=== PATIENT | female | born 1990 | race Caucasian/White ===

== ENCOUNTER 2018-09-05 06:29 | Emergency (ER) | payer SELFPAY ==
[2018-09-05] MEDS ORDERED: Ketorolac INJ* 30 MG/ML 1 ML VIAL IV PUSH ONE (07:15)
--- NOTE | 2018-09-05 07:16 | ED ---
GI/ HPI - HPI Summary HPI Summary: This pt is a 28 y/o female presenting to [facility] c/o right flank pain today. Pt reports prior to onset of her flank pain she had a knot on her left side of neck and felt like she was about to start a cold. Today she began to have right flank pain, nausea, and vomiting. Denies fever, chills, dysuria, hematuria, rash , chest pain, SOB. PMHx includes kidney stones on the right, cholecystectomy, endometriosis, ovarian cyst. Denies hx of appendectomy. - History of Current Complaint Chief Complaint: EDFlankPain Time Seen by Provider: 09/05/18 07:09 Stated Complaint: VOMITING Hx Obtained From: Patient Onset/Duration: Started Hours Ago, Still Present Timing: Lasting Hours Current Severity: Moderate Pain Intensity: 7 Location of Pain: Flank - right Associated Signs and Symptoms: Positive: Nausea, Vomiting, Flank Pain - right. Negative: Fever, Hematuria, Dysuria, Chills, Cough, Chest Pain Aggravating Factor(s): Nothing Alleviating Factor(s): Nothing - Allergy/Home Medications Allergies/Adverse Reactions: Allergies Allergy/AdvReac Type Severity Reaction Status Date / Time morphine Allergy Rash Verified 09/05/18 06:33 Home Medications: Home Medications hydrOXYzine HCL TAB* 75 mg PO DAILY 09/05/18 [History Confirmed 09/05/18] PMH/Surg Hx/FS Hx/Imm Hx Endocrine/Hematology History: Denies: Hx Diabetes Cardiovascular History: Denies: Hx Hypertension History: Reports: Hx Kidney Stones, Other Problems/Disorders - endometriosis - Surgical History Surgery Procedure, Year, and Place: Cholecystectomy Infectious Disease History: No Infectious Disease History: Denies: Traveled Outside the [place] in Last 30 Days - Family History Known Family History: Negative: Cardiac Disease, Hypertension - Social History Alcohol Use: Occasionally Substance Use Type: Reports: None Smoking Status (MU): Never Smoked Tobacco Review of Systems Negative: Fever, Chills Negative: Chest Pain Negative: Shortness Of Breath Positive: Vomiting, Nausea Positive: flank pain - right. Negative: dysuria, hematuria Negative: Rash All Other Systems Reviewed And Are Negative: Yes Physical Exam - Summary Physical Exam Summary: Appearance: Well appearing, no pain distress Skin: warm, dry, reflects adequate perfusion Head/face: normal Eyes: EOMI, LETA ENT: normal Neck: supple, nontender Respiratory: CTA, breath sounds present Cardiovascular: RRR, pulses symmetrical Abdomen: Mild tenderness on the right flank Musculoskeletal: normal, strength/ROM intact Neuro: normal, sensory motor intact, A&Ox3 Triage Information Reviewed: Yes Vital Signs On Initial Exam: Initial Vitals Temp Pulse Resp BP Pulse Ox 98.9 F 103 20 117/77 98 09/05/18 06:32 09/05/18 06:32 09/05/18 06:32 09/05/18 06:32 09/05/18 06:32 Diagnostics - Vital Signs Vital Signs Temp Pulse Resp BP Pulse Ox 09/05/18 06:32 98.9 F 103 20 117/77 98 - Laboratory Result Diagrams: 09/05/18 07:30 09/05/18 07:30 Lab Statement: Any lab studies that have been ordered have been reviewed, and results considered in the medical decision making process. - CT Abdomen/Pelvis CT CT Interpretation Completed By: Radiologist Summary of CT Findings: IMPRESSION: No hydronephrosis or nephrolithiasis. No acute noncontrast CT pathology of the visualized abdomen and pelvis. Dr. Helm has reviewed this report. Re-Evaluation - Re-Evaluation First Eval Re-Evaluation Time: 10:23 Comment: I reviewed the lab and CT results with the pt. She will be discharged home. GIGU Course/Dx - Course Assessment/Plan: Pt is a 28 y/o female, with hx of kidney stones on the right, who presents with right flank pain today. Pt reports prior to onset of her flank pain she had a knot on her left side of neck and felt like she was about to start a cold. Today she began to have right flank pain, nausea, and vomiting. Denies fever, chills, dysuria, hematuria, rash, chest pain, SOB. Blood work, urinalysis, and abdomen/pelvis CT obtained. Abdomen/Pelvis CT shows no hydronephrosis or nephrolithiasis. No acute noncontrast CT pathology of the visualized abdomen and pelvis. Urinalysis is consistent with UTI. In the ED course pt was given IV fluids, Toradol, Bactrim. Pt will be discharged home with a prescription for Bactrim and follow up from her PCP. She was instructed to return to the ED for any worsening or new symptoms. - Diagnoses Differential Diagnoses - Female: Renal Calculi, Urinary Tract Infection, Ureteral Calculi Provider Diagnoses: UTI (urinary tract infection) Discharge - Sign-Out/Discharge Documenting (check all that apply): Patient Departure - Discharge home - Discharge Plan Condition: Stable Disposition: HOME Prescriptions: Sulfamethox/Trimethoprim DS* [Bactrim DS 800/160 TAB*] 1 tab PO BID #10 tab Patient Education Materials: Urinary Tract Infection in Women (ED) Forms: *Work Release Referrals: [facility] [Outside] Additional Instructions: Please follow up with your primary care provider in 3 days. If you don't have one, please follow up with [facility]. RETURN TO THE ED FOR ANY WORSENING OR NEW SYMPTOMS. - Billing Disposition and Condition Condition: STABLE Disposition: Home - Attestation Statements Document Initiated by Ron: Yes Documenting Scribe: Estefany Villegas Provider For Whom Ron is Documenting (Include Credential): Jaylen Helm MD Scribe Attestation: Estefany Zarate scribed for Jaylen Helm MD on 09/05/18 at 1148. Scribe Documentation Reviewed: Yes Provider Attestation: The documentation as recorded by the Estefany bhandari accurately reflects the service I personally performed and the decisions made by , Jaylen Helm MD Status of Scribe Document: Viewed
[2018-09-05 07:38] LABS: ABS Basophils 0 10^3/ul (0-0.2); ABS Eosinophils 0.1 10^3/ul (0-0.6); ABS Monocytes 0.4 10^3/ul (0-0.8); ABS Neutrophils 5.5 10^3/ul (1.5-7.7); ABS Nucleated RBC 0 10^3/ul; Eosinophil % 1.7 %; Hematocrit 41 % (35-47); Hemoglobin 13.9 g/dl (12.0-16.0); Mean Corpuscular HGB Conc 34 g/dl (31-36); Mean Corpuscular Hemoglobin 32 pg (27-31); Mean Corpuscular Volume 94 fL (80-97); Mean Platelet Volume 9.7 fL (7.4-10.4); Nucleated Red Blood Cells % 0.1; Platelet Count 167 10^3/ul (150-450); Red Blood Count 4.35 10^6/ul (4.00-5.40); Red Cell Distribution Width 12 % (10.5-15); White Blood Count 7.1 10^3/ul (3.5-10.8)
[2018-09-05 07:57] LABS: ALT 11 U/L (7-52); AST 12 U/L (13-39); Albumin 4.3 g/dL (3.2-5.2); Albumin/Globulin Ratio 1.7 (1-3); Alkaline Phosphatase 41 U/L (34-104); Anion Gap 7 mmol/L (2-11); Blood Urea Nitrogen 8 mg/dL (6-24); CO2 Carbon Dioxide 21 mmol/L (22-32); Calcium 9.3 mg/dL (8.6-10.3); Chloride 110 mmol/L (101-111); EGFR Non-African American 127.2 (>60); Globulin 2.6 g/dL (2-4); Glucose 99 mg/dL (70-100); Potassium 3.7 mmol/L (3.5-5.0); Sodium 138 mmol/L (135-145); Total Protein 6.9 g/dL (6.4-8.9)
[2018-09-05] MEDS: NS 0.9% 1000 ML* 2,000 ML IV ONE ×2 (08:02→08:03)
[2018-09-05 08:03] LABS: HCG Pregnancy < 0.60 mIU/mL
[2018-09-05 08:26] LABS: Urine Appearance Cloudy; Urine Bacteria Absent (Absent); Urine Bilirubin Negative (Negative); Urine Blood 2+ (Negative); Urine Color Yellow; Urine Glucose Negative (Negative); Urine Ketones Negative (Negative); Urine Nitrite Positive (Negative); Urine Protein 1+(30 mg/dL) (Negative); Urine Red Blood Cell Trace(0-2/hpf) (Absent); Urine Specific Gravity 1.018 (1.010-1.030); Urine Urobilinogen Negative (Negative); Urine White Blood Cell 3+(>20/hpf) (Absent)
[2018-09-05] MEDS ORDERED: Sulfamethox/Trimethoprim DS 800/160* TAB PO ONE (10:21)
[2018-09-05 10:43] VITALS: BP 116/67
--- NOTE | 2018-09-07 16:08 | PN ---
Progress Note - Progress Note Date of Service: 09/05/18 Note: Pt. started on Bactrim 09/05 for UTI. Final urine culture today is growing e. coli susceptible to bactrim. No change in treatment needed at this time.
== END 2018-09-05 10:50 | disposition home or self-care (01) ==
LOC: ED 06:29
DX: N39.0 Urinary tract infection, site not specified (principal); B96.20 Unspecified Escherichia coli [E. coli] as the cause of diseases classified elsewhere; Z87.442 Personal history of urinary calculi
CPT/HCPCS: 36415; 74176; 80053; 81003; 81015; 83690; 84702; 85025; 87077; 87086; 87186; 96360; 96361; 99283; A9270-GY; J1885

== ENCOUNTER 2019-02-19 18:51 | Emergency (ER) | payer SELFPAY ==
[2019-02-19] MEDS ORDERED: Tetan/Diph/Pertus SYR(Tdap)* 0.5 ML SYR(BOOSTRIX) use SYR IM ONE (19:29)
[2019-02-19 19:31] VITALS: BP 137/77
[2019-02-19] MEDS ORDERED: Ciprofloxacin TAB* 500 MG PO ONE ×2 (20:43→20:47)
[2019-02-19] MEDS ORDERED: Naproxen TAB* 250 MG PO ONE ×2 (20:49)
--- NOTE | 2019-02-19 20:59 | UC ---
Lower Extremity/Ankle HPI - HPI Summary HPI Summary: 29 yo female stepped on nail about 11:30 AM had to remove nail felt like it was tenting the skin on the dorsum of the foot unable to bear wt uncertain of last tet went through foam sole - History of Current Complaint Chief Complaint: UCWounds Stated Complaint: LEFT FOOT INJURY, ETA 1900 Time Seen by Provider: 02/19/19 20:06 Hx Obtained From: Patient Onset/Duration: Sudden Onset, Lasting Hours Severity Initially: Severe Severity Currently: Moderate Pain Intensity: 7 Pain Scale Used: 0-10 Numeric Aggravating Factor(s): Standing, Ambulation Alleviating Factor(s): Elevation Able to Bear Weight: No Feet (Multiple View): 1 - PW 2 - STS - Allergies/Home Medications Allergies/Adverse Reactions: Allergies Allergy/AdvReac Type Severity Reaction Status Date / Time morphine Allergy Rash Verified 02/19/19 19:31 PMH/Surg Hx/FS Hx/Imm Hx Previously Healthy: Yes - Surgical History Surgical History: Yes Surgery Procedure, Year, and Place: Cholecystectomy - Family History Known Family History: Positive: Non-Contributory Negative: Cardiac Disease, Hypertension - Social History Alcohol Use: None Substance Use Type: None Smoking Status (MU): Current Every Day Smoker Type: Cigarettes Review of Systems All Other Systems Reviewed And Are Negative: Yes Constitutional: Positive: Negative Skin: Positive: Negative Eyes: Positive: Negative ENT: Positive: Negative Respiratory: Positive: Negative Cardiovascular: Positive: Negative Gastrointestinal: Positive: Abdominal Pain Motor: Positive: Negative Neurovascular: Positive: Negative Musculoskeletal: Positive: Arthralgia - left foot Neurological: Positive: Negative Psychological: Positive: Negative Physical Exam Triage Information Reviewed: Yes Appearance: Well-Appearing, No Pain Distress, Well-Nourished Vital Signs: Initial Vital Signs Temp 99.3 F 02/19/19 19:27 Pulse 70 02/19/19 19:27 Resp 18 02/19/19 19:27 BP 137/77 02/19/19 19:27 Pulse Ox 100 02/19/19 19:27 Vital Signs Reviewed: Yes Eyes: Positive: Conjunctiva Clear ENT: Positive: Hearing grossly normal. Negative: Nasal congestion, Nasal drainage, Trismus, Hoarse voice Neck: Positive: Supple Respiratory: Positive: Lungs clear, Normal breath sounds, No respiratory distress, No accessory muscle use Cardiovascular: Positive: RRR, No Murmur Musculoskeletal: Positive: Edema @ - see image Psychological Exam: Normal Skin Exam: Other - see image Diagnostics - Radiology No standard instances Radiology Interpretation Completed By: ED Physician Summary of Radiographic Findings: no definitive fx noted Lower Extremity Course/Dx - Differential Dx/Diagnosis Provider Diagnosis: Puncture wound of plantar aspect of left foot - Physician Notifications Discussed Patient Care With: Nghia Rizo - start cipro and he will see tomorrow Time Discussed With Above Provider: 20:40 Instructed by Provider To: Have Pt Call For Appt. Discharge - Sign-Out/Discharge Documenting (check all that apply): Patient Departure All imaging exams completed and their final reports reviewed: No - Discharge Plan Condition: Stable Disposition: HOME Prescriptions: Ciprofloxacin HCl [Cipro] 500 mg PO Q12HR #10 tablet Naproxen [Naproxen 500 mg tab] 500 mg PO Q12HR PRN #14 tablet PRN Reason: Pain Patient Education Materials: Crutch Instructions (ED), Puncture Wound (ED) Referrals: Nghia Rizo MD [Medical Doctor] - As Soon As Possible (I spoke to Dr. Rizo and he wants to see you tomorrow) Additional Instructions: frequent warm soapy soaks crutches with non wt bearing elevate you need to have this rechecked tomorrow by a specialist this injury is at high risk for serious infection YOUR TETANUS STATUS WAS UPDATED offical XR reading pending - Billing Disposition and Condition Condition: STABLE Disposition: Home
--- NOTE | 2019-02-20 14:26 | UC ---
- EKG/XRAY/CT Xray Comments: wet read correct Course/Dx - Diagnoses Provider Diagnoses: Puncture wound of plantar aspect of left foot - Provider Notifications Time Discussed With Above Provider: 20:40 Instructed by Provider To: Have Pt Call For Appt. Discharge - Sign-Out/Discharge Documenting (check all that apply): Post-Discharge Follow Up All imaging exams completed and their final reports reviewed: Yes - Discharge Plan Condition: Stable Disposition: HOME Prescriptions: Ciprofloxacin HCl [Cipro] 500 mg PO Q12HR #10 tablet Naproxen [Naproxen 500 mg tab] 500 mg PO Q12HR PRN #14 tablet PRN Reason: Pain Patient Education Materials: Crutch Instructions (ED), Puncture Wound (ED) Referrals: Nghia Rizo MD [Medical Doctor] - As Soon As Possible (I spoke to Dr. Rizo and he wants to see you tomorrow) Additional Instructions: frequent warm soapy soaks crutches with non wt bearing elevate you need to have this rechecked tomorrow by a specialist this injury is at high risk for serious infection YOUR TETANUS STATUS WAS UPDATED offical XR reading pending - Billing Disposition and Condition Condition: STABLE Disposition: Home
== END 2019-02-19 21:15 | disposition home or self-care (01) ==
LOC: UCEAST 18:51
DX: S91.332A Puncture wound without foreign body, left foot, initial encounter (principal); W45.0XXA Nail entering through skin, initial encounter; Y92.9 Unspecified place or not applicable; Z23 Encounter for immunization; Z88.5 Allergy status to narcotic agent; F17.210 Nicotine dependence, cigarettes, uncomplicated
CPT/HCPCS: 90471; 90715; 99214; A9270-GY; G0463